=== PATIENT | female | born 1970 | race African-American/Black ===

== ENCOUNTER → 2023-11-03 | Outpatient (CLI) | payer OTHER ==
[~2023-11-03] MED LIST: FLEXERIL 1010 MG/TAB PO; MEDROL 4MG DOSPA4 MG PO
== END ==
LOC: MC.RAD 08:36
DX: Z12.31 Encounter for screening mammogram for malignant neoplasm of breast (principal); N63.25 Unspecified lump in the left breast, overlapping quadrants

== ENCOUNTER 2023-12-26 12:46 | Emergency (ER) | payer OTHER ==
[~2023-12-26] VITALS: Ht 180.3 cm; Wt 130.9 kg
[2023-12-26 12:54] VITALS: TEMP 98.4
[2023-12-26] MEDS ORDERED: PREDNISONE20 MG PO (14:24)
[2023-12-26] MEDS ORDERED: Albuterol/Ipratropium 3 MG-0.5 MG/3 ML Neb Soln IH ONE (14:30)
[2023-12-26 15:47] VITALS: BP 143/84; PULSE 99
== END 2023-12-26 15:47 | disposition home or self-care (01) ==
LOC: COL.ER 12:46
DX: J45.901 Unspecified asthma with (acute) exacerbation (principal); Z79.899 Other long term (current) drug therapy

== ENCOUNTER 2023-12-29 14:58 | Emergency (ER) | payer OTHER ==
[~2023-12-29] VITALS: Ht 180.3 cm; Wt 130.9 kg
[~2023-12-29 14:58] MED LIST changes: +PREDNISONE20 MG PO
[2023-12-29] MEDS ORDERED: Morphine 4 MG/ML VIAL IV PRN (15:15)
[2023-12-29] MEDS ORDERED: NS 1,000 ML IV ONE (15:15)
[2023-12-29] MEDS ORDERED: Ondansetron 4 MG/2 ML VIAL IV ONE (15:15)
[2023-12-29 17:45] VITALS: TEMP 98.3
[2023-12-29 17:46] LABS: BASO # 0.1 K/mm3 (0.0-0.2); BASO % 0.3 % (0.0-2.0); EOS # 0.1 K/mm3 (0.0-0.7); EOS % 0.7 % (0.0-4.0); GRAN % 84.1 % (42.2-75.2); HEMATOCRIT 48.9 % (37.0-47.0); HEMOGLOBIN 15.2 g/dl (12.5-16.0); LYMPH # 1.8 K/mm3 (1.2-3.4); MEAN CELL VOLUME 82 fl (80.0-100.0); MEAN CORPUSCULAR HEMOGLOBIN 25 pg (27-31); MEAN CORPUSCULAR HGB CONC 31 g/dl (33.0-37.0); MEAN PLATELET VOLUME 9.7 fl (7.4-10.4); MONO # 1.1 K/mm3 (0.1-0.6); MONO % 5.5 % (1.7-9.3); PLATELET COUNT 410 K/mm3 (130-400); RED BLOOD COUNT 5.98 M/mm3 (4.10-5.30); REDCELL DISTRIBUTION WIDTH-CV 14.3 % (11.5-14.5)
[2023-12-29 17:59] LABS: BILIRUBIN,TOTAL 0.5 mg/dL (0.2-1.2); CALCIUM 9.5 mg/dL (8.4-10.2); CREATININE, serum 0.97 mg/dL (0.57-1.11); POTASSIUM 3.9 mEq/L (3.5-4.5); TOTAL PROTEIN 8.4 g/dl (6.2-8.1)
[2023-12-29] MEDS ORDERED: Iohexol 300 - 100 ML VIAL IV ONE (18:14)
[2023-12-29] MEDS ORDERED: NS 50 ML IV ONE (18:24)
[2023-12-29 19:19] LABS: COLLECTION METHOD CLEAN CATCH
[2023-12-29 19:28] LABS: URINE APPEARANCE Cloudy (CLEAR/HAZY); URINE BLOOD Negative (NEGATIVE); URINE COLOR YELLOW (YELLOW); URINE GLUCOSE Negative (NEGATIVE); URINE KETONE Negative (NEGATIVE); URINE NITRATE Negative (NEGATIVE); URINE PROTEIN(semi-quant) Negative (NEGATIVE); URINE UROBILINOGEN 0.2 E.U/dL (0.2-1.0)
[2023-12-29 19:51] LABS: URINE RBC NONE SEEN /hpf (0-2); URINE WBC None Seen /hpf (0-2)
[2023-12-29] MEDS ORDERED: ZOFRAN ODT4 MG PO (20:20)
[2023-12-29 20:47] VITALS: BP 128/87; PULSE 95
== END 2023-12-29 20:47 | disposition home or self-care (01) ==
LOC: COL.ER 14:58
PROVIDERS: Emergency Medicine
DX: R10.11 Right upper quadrant pain (principal); R11.2 Nausea with vomiting, unspecified
CPT/HCPCS: J2270; J2405; J7030; Q9967